=== PATIENT | male | born 1990 | race Caucasian/White ===

== ENCOUNTER 2017-09-27 22:34 | Emergency (ER) | payer OTHER ==
[2017-09-27] MEDS: PROPOFOL 100 ML IV PRN ×2 (00:50→22:38)
[~2017-09-27 22:34] MED LIST: ROCURONIUM BROMIDE INJ 50 MG/5 ML VIAL IV ONE
[2017-09-27] MEDS ORDERED: KETAMINE HCL INJ 500 MG/10 ML VIAL ONE (22:36)
[2017-09-27] MEDS ORDERED: PROPOFOL 100 ML IV ONE (22:38)
[2017-09-27 22:51] LABS: ABSOLUTE BASOPHILS # (AUTO) 0.1 10^3/uL (0.0-0.2); ABSOLUTE EOSINOPHILS # (AUTO) 0.2 10^3/uL (0.0-0.6); ABSOLUTE LYMPHOCYTES (AUTO) 2.4 10^3/uL (0.5-4.7); ABSOLUTE MONOCYTES (AUTO) 0.4 10^3/uL (0.1-1.4); ABSOLUTE NEUT (AUTO) 15.1 10^3/uL (1.7-8.2); BASOPHILS % (AUTO) 0.6 % (0-2); EOSINOPHILS % (AUTO) 1.3 % (0-6); HEMATOCRIT 45.7 % (37.9-51.0); LYMPHOCYTES % (AUTO) 13.3 % (13-45); MEAN CORPUSCULAR HGB CONC 32.8 g/dL (32.0-36.0); MEAN CORPUSCULAR VOLUME 85 fl (80-97); MONOCYTES % (AUTO) 2.4 % (3-13); PLATELET COUNT 356 10^3/uL (150-450); RED BLOOD COUNT 5.36 10^6/uL (4.35-5.55); RED CELL DISTRIBUTION WIDTH 13.2 % (11.5-14.0); SEGMENTED NEUTROPHILS % (AUTO) 82.4 % (42-78); TOTAL CELLS COUNTED % (AUTO) 100 %; WHITE BLOOD COUNT 18.3 10^3/uL (4.0-10.5)
[2017-09-27 22:52] LABS: ARTERIAL BLOOD BASE EXCESS -7.2 mmol/L; ARTERIAL BLOOD H2CO3 1.44 mmol/L (1.05-1.35); ARTERIAL BLOOD HCO3 20.3 mmol/L (20-26); ARTERIAL BLOOD O2 SATURATION 72.3 % (94-98); ARTERIAL BLOOD PCO2 47.7 mmHg (35-45); ARTERIAL BLOOD PH 7.25 (7.35-7.45); ARTERIAL BLOOD PO2 44.2 mmHg (80-100); ARTERIAL BLOOD TOTAL CO2 21.7 mmol/L (23-27)
[2017-09-27 22:53] LABS: ARTERIAL BLOOD FIO2 100
--- NOTE | 2017-09-27 22:53 | ER Document Report ---
ED General - General Stated Complaint: POSSIBLE OVERDOSE Time Seen by Provider: 09/27/17 22:42 Cannot obtain history due to: Unstable vital signs Notes: Patient is a 27-year-old male without past medical history, active heroin user who presents after apparently being found unconscious in the lobby of a apartment complex. History is somewhat limited as patient is critically ill at time of presentation. The patient himself was in distress and not able to provide meaningful history. EMS reports that apparently a bypass or found the patient lying on the ground. EMS was called and found patient to be saturating the 50s. The provided 4 g of naloxone which did wake the patient but he maintained very poor oxygen saturations during that time. They report that despite CPAP and continuous nasal cannula his oxygen saturation never proved beyond the mid 80s. Apparently the patient had not complained of anything leading up to the episode today. No additional history can be obtained secondary to the critical nature of this patient at time of presentation. TRAVEL OUTSIDE OF THE [place] IN LAST 30 DAYS: No - Related Data Allergies/Adverse Reactions: No Known Allergies Allergy (Unverified 08/26/16 10:16) Past Medical History - General Information source: Patient, Emergency Med Personnel Cannot obtain history due to: Unstable vital signs - Social History Smoking Status: Current Every Day Smoker Frequency of alcohol use: None Drug Abuse: Heroin Lives with: Alone Family History: Reviewed & Not Pertinent - Past Medical History Cardiac Medical History: Denies: Hx Coronary Artery Disease, Hx Heart Attack, Hx Hypertension Pulmonary Medical History: Denies: Hx Asthma, Hx Bronchitis, Hx COPD, Hx Pneumonia Neurological Medical History: Denies: Hx Cerebrovascular Accident, Hx Seizures Musculoskeltal Medical History: Denies Hx Arthritis Psychiatric Medical History: Reports: Hx Anxiety, Hx Depression Past Surgical History: Reports: Hx Inguinal Hernia - Left - Immunizations Hx Diphtheria, Pertussis, Tetanus Vaccination: Yes Review of Systems - Review of Systems Notes: Constitutional: Negative for fever. HENT: Negative for sore throat. Eyes: Negative for visual changes. Cardiovascular: Negative for chest pain. Respiratory: Positive for shortness of breath. Gastrointestinal: Negative for abdominal pain, vomiting or diarrhea. Genitourinary: Negative for dysuria. Musculoskeletal: Negative for back pain. Skin: Negative for rash. Neurological: Negative for headaches, weakness or numbness. 10 point ROS negative except as marked above and in HPI. Physical Exam - Vital signs Vitals: Temp 97.9 F 09/27/17 22:34 Interpretation: Tachycardic, Hypoxic, Tachypneic Notes: PHYSICAL EXAMINATION: GENERAL: Lethargic but GCS of 15. Appears visibly cyanotic in the ears, hands and feet. HEAD: Atraumatic, normocephalic. EYES: Pupils are 2 mm, equally reactive, extraocular movements intact, sclera anicteric, conjunctiva are normal. ENT: nares patent, oropharynx clear without exudates. Moist mucous membranes. NECK: Normal range of motion, supple without lymphadenopathy LUNGS: Diminished breath sounds in all lung burrows. Slightly rhonchorous throughout. Tachypneic. HEART: Regular tachycardia without murmurs ABDOMEN: Soft, nontender, normoactive bowel sounds. No guarding, no rebound. No masses appreciated. EXTREMITIES: Normal range of motion, no pitting or edema. No cyanosis. NEUROLOGICAL: No focal neurological deficits. Moves all extremities spontaneously and on command. PSYCH: Somewhat lethargic, but responds to questioning SKIN: Warm, Dry, normal turgor, no rashes or lesions noted. Course - Re-evaluation Re-evalutation: 09/27/17 22:43 Patient presents in severe respiratory distress, initially saturating 51% on CPAP by EMS clinically appearing to have a higher SPO2 than this as he was awake and talking. He does have retractions, hyperventilating and does appear clinically cyanotic although it is unclear if this is from temperature as it is very cold outside versus true cyanosis. He was immediately transition to our BiPAP mask with an a nasal cannula on high flow underneath the BiPAP mask. Lung sounds were clear bilaterally. ABG will be obtained to clarify his oxygen level as after being hooked up to our continuous monitor patient was found on BiPAP with underlying nasal cannula to be saturating at 82-94%. An ABG will be sent to clarify. A chest x-ray will be obtained. Patient's mental status is otherwise clear and he is currently a GCS of 15. Diagnostic considerations include naloxone induced pulmonary edema, possible massive aspiration, less likely to be an acute endocarditis with associated congestive failure as patient has no additional stigmata of this diagnosis. Acute ARDS is also high on the differential. A bedside echocardiogram shows appropriate contractility, no regional wall motion abnormalities, and no evidence of a pericardial effusion. Chest x-ray shows diffuse pulmonary edema and B-lines are present on a bedside pulmonary ultrasound. Will continue to reassess frequently. Patient is critically ill due to his respiratory status 09/27/17 23:42 Documentation is delayed as I have been with this patient for an hour continuously. Patient has subsequently been intubated as he continued to have deteriorating pulse oxygenation maintaining a sat no higher than 82-83%. Initial ABG did show the initial concerning pulse oximetry readings by EMS were accurate. Despite our initially reassuring pulse oximetry readings on BiPAP with nasal cannula patient continued to have marked deterioration with his oxygen saturations coming into the low 80s. This was despite 100% nasal cannula underneath the BiPAP. Intubation was achieved on per first-pass success without difficulty or delayed period of intubation. However immediately upon placing ET tube a large quantity of a reddish clear sputum was produced and patient is continued to produce a very large amount of this, consistent with ARDS. Patient remains very difficult to ventilate. I have been at the bedside with respiratory therapy directly managing the ventilator. We had to remove the patient from the ventilator and begin bagging with a Peep valve to improve the patient's oxygen saturations. I have increased the patient 's PEEP to 18, he continues on 100% FiO2, and I am beginning to use a ARDS protocol increasing his respiratory rate 22 and decreasing his tidal volume down to 400. I have also placed a call to [facility] for emergent transfer of this patient is he will require an art therapy specialist as well as a acid polymerization operator. 09/27/17 23:57 I have spoken to who is accepted the patient for transfer. He does not have any additional ventilator recommendations and what I am currently doing. The patient's SPO2 is currently 100%, PEEP at 18, respiratory rate 25, tidal volume 400. Will continue to assess at regular intervals 09/28/17 00:44 Patient is having improvement of his oxygenation coming up to 92-93% on the same settings. His blood pressure is downtrending somewhat and I will initiate a fluid bolus of 500 cc of normal saline. Propofol is at 40 and patient is moving all extremities spontaneously, coughing and gagging. Still having a large amount of pulmonary edema in the endotracheal tube. A 40 mg bolus of propofol will be given to help patient become more sedated as he is starting to pull against the restraints and coughing vigorously. Continue suction out large quantities of pulmonary edema from his lungs. Air transport is due to arrive shortly. 0102-I have provided a bedside report to air transport. Clarified all management and current ventilator settings. Patient is now having greatly improving oxygen saturations coming up into the 98-100% on above settings. Will maintain the settings for the transportation but I anticipate that hopefully he will begin to be able to be weaned off 100% FiO2. Patient remains in critical condition but is stable for transport at this time. - Vital Signs Vital signs: Temp Pulse Resp BP Pulse Ox 97.9 F 15 99/66 L 99 09/27/17 22:34 09/28/17 01:01 09/28/17 01:01 09/28/17 01:01 - Laboratory Result Diagrams: 09/27/17 22:41 09/27/17 22:41 Laboratory results interpreted by me: 09/27/17 09/27/17 09/27/17 21:50 22:41 22:41 WBC 18.3 H Seg Neutrophils % 82.4 H Monocytes % 2.4 L Absolute Neutrophils 15.1 H Carbonic Acid ABG pH ABG pCO2 ABG pO2 ABG Total CO2 ABG O2 Saturation Potassium 3.5 L Creatinine 1.63 H Est GFR (Non-Af Amer) 52 L Glucose 320 H Lactic Acid 5.6 H Urine Protein Urine Glucose (UA) Urine Blood Salicylates < 1.0 L Acetaminophen < 10 L 09/27/17 09/27/17 09/27/17 22:41 23:35 23:45 WBC Seg Neutrophils % Monocytes % Absolute Neutrophils Carbonic Acid 1.44 H 2.09 H ABG pH 7.25 L 7.17 L* ABG pCO2 47.7 H 69.3 H* ABG pO2 44.2 L 56.4 L ABG Total CO2 21.7 L ABG O2 Saturation 72.3 L 80.3 L Potassium Creatinine Est GFR (Non-Af Amer) Glucose Lactic Acid Urine Protein 30 H Urine Glucose (UA) >=500 H Urine Blood SMALL H Salicylates Acetaminophen 09/28/17 00:32 WBC Seg Neutrophils % Monocytes % Absolute Neutrophils Carbonic Acid 1.56 H ABG pH 7.24 L ABG pCO2 51.9 H ABG pO2 67.0 L ABG Total CO2 ABG O2 Saturation 89.8 L Potassium Creatinine Est GFR (Non-Af Amer) Glucose Lactic Acid Urine Protein Urine Glucose (UA) Urine Blood Salicylates Acetaminophen - Diagnostic Test Radiology reviewed: Image reviewed, Reports reviewed Radiology results interpreted by me: 09/28/17 02:42 Chest x-ray: Diffuse patchy infiltrates in all all aspects of the lung field Chest x-ray 2: ET tube in appropriate position. Unchanged appearance of pulmonary infiltrates Procedures - Intubation Orotracheal Airway evaluation: Copious secretions Mallampati Classification: Class 1 Medications: Ketamine, Other - Rocuronium Intubation method: Orotracheal Blade type: Tan Blade size: 4 Equipment used: Glidescope ETT size: 8.0 ETT secured at: Lips ETT secured at (cm): 25 Breath Sounds after Intubation: Equal End tidal CO2 confirmed: Yes Ventilator settings: SIMV Tidal volume: 400 FiO2: 100 Respirations: 25 PEEP: 18 Post Intubation Xray: Yes Intubation Complications: No complications Critical Care Note - Critical Care Note Total time excluding time spent on procedures (mins): 120 Comments: Critical care time spent obtaining history from patient or surrogate, discussions with consultants, development of treatment plan with patient or surrogate, evaluation of patient's response to treatment, examination of patient , ordering and performing treatments and interventions, ordering and review of laboratory studies, re-evaluation of patient's condition, ordering and review of radiographic studies and review of old charts Discharge - Discharge Clinical Impression: Respiratory distress, ARDS (adult respiratory distress syndrome), Hypoxemia Heroin overdose Qualifiers: Encounter type: initial encounter Injury intent: accidental or unintentional Qualified Code(s): T40.1X1A - Poisoning by heroin, accidental (unintentional), initial encounter Condition: Critical Disposition: [facility]
--- NOTE | 2017-09-27 23:07 | RADIOLOGY REPORT (SQ) ---
EXAM DESCRIPTION: CHEST SINGLE VIEW COMPLETED DATE/TIME: 09/27/2017 10:50 pm REASON FOR STUDY: sob, hypoxia COMPARISON: None. EXAM PARAMETERS: NUMBER OF VIEWS: One view. TECHNIQUE: Single frontal radiographic view of the chest acquired. RADIATION DOSE: NA LIMITATIONS: None. FINDINGS: LUNGS AND PLEURA: Diffusely increased airspace opacities. No pleural effusion. No pneumo thorax. MEDIASTINUM AND HILAR STRUCTURES: No masses. Contour normal. HEART AND VASCULAR STRUCTURES: Heart normal in size. Normal vasculature. BONES: No acute findings. HARDWARE: None in the chest. OTHER: No other significant finding. IMPRESSION: Diffusely increased airspace opacities are a nonspecific finding, and may represent mult i lobar pneumonia, atypical pneumonitis, pulmonary edema or hemorrhage, ARDS. COMMENT: Documentation of communication of results. Examination was discussed with the treating Dr. Fabien zamora, the time of interpretation. TECHNICAL DOCUMENTATION: JOB ID: [id number] [employer]- All Rights Reserved
[2017-09-27 23:11] LABS: ALANINE AMINOTRANSFERASE 29 U/L (21-72); ALBUMIN 4.7 g/dL (3.5-5.0); ALKALINE PHOSPHATASE 76 U/L (38-126); ANION GAP 15 (5-19); ASPARTATE AMINO TRANSFERASE 54 U/L (17-59); BILIRUBIN,DIRECT 0.3 mg/dL (0.0-0.4); BILIRUBIN,TOTAL 0.3 mg/dL (0.2-1.3); BLOOD UREA NITROGEN 19 mg/dL (7-20); CARBON DIOXIDE 26 mmol/L (22-30); CHLORIDE 98 mmol/L (98-107); GLUCOSE 320 mg/dL (75-110); POTASSIUM 3.5 mmol/L (3.6-5.0); SODIUM 139.4 mmol/L (137-145); TOTAL PROTEIN 7.8 g/dL (6.3-8.2)
[2017-09-27 23:13] LABS: ACETAMINOPHEN < 10 ug/mL (10-30); ALCOHOL < 10 mg/dL (NONE DETECTED); SALICYLATE < 1.0 mg/dL (2.0-20.0)
[2017-09-27] MEDS ORDERED: NORMAL SALINE 1000 ML 1,000 ML IV ONE (23:33)
[2017-09-27 23:52] LABS: ARTERIAL BLOOD BASE EXCESS -5.7 mmol/L; ARTERIAL BLOOD H2CO3 2.09 mmol/L (1.05-1.35); ARTERIAL BLOOD HCO3 24.5 mmol/L (20-26); ARTERIAL BLOOD O2 SATURATION 80.3 % (94-98); ARTERIAL BLOOD PO2 56.4 mmHg (80-100); ARTERIAL BLOOD TOTAL CO2 26.6 mmol/L (23-27)
[2017-09-27 23:54] LABS: ARTERIAL BLOOD FIO2 100
[2017-09-27 23:55] LABS: ARTERIAL BLOOD PCO2 69.3 mmHg (35-45); ARTERIAL BLOOD PH 7.17 (7.35-7.45)
[2017-09-28 00:06] LABS: URINE AMPHETAMINES SCREEN NEGATIVE; URINE BARBITURATES SCREEN NEGATIVE; URINE BENZODIAZEPINES SCREEN NEGATIVE; URINE COCAINE SCREEN NEGATIVE; URINE MARIJUANA (THC) SCREEN NEGATIVE; URINE METHADONE SCREEN NEGATIVE; URINE PHENCYCLIDINE SCREEN NEGATIVE
[2017-09-28 00:10] LABS: AMORPHOUS SEDIMENT,URINE TRACE /HPF; APPEARANCE,URINE SLIGHTLY-CLOUDY; BILIRUBIN,URINE NEGATIVE (NEGATIVE); COLOR,URINE YELLOW; GLUCOSE, URINE >=500 mg/dL (NEGATIVE); KETONES,URINE NEGATIVE (NEGATIVE); LEUKOCYTE ESTERASE,URINE NEGATIVE (NEGATIVE); NITRITE,URINE NEGATIVE (NEGATIVE); PROTEIN,URINE 30 mg/dL (NEGATIVE); URINE SPECIFIC GRAVITY 1.017; UROBILINOGEN,URINE NEGATIVE mg/dL (<2.0)
--- NOTE | 2017-09-28 00:12 | RADIOLOGY REPORT (SQ) ---
EXAM DESCRIPTION: CHEST SINGLE VIEW CLINICAL HISTORY: 27 years, Male, post-intubatin COMPARISON: 1.6.18 LIMITATIONS: None. FINDINGS: Extensive, moderate mixed airspace and interstitial opacity, mild haziness-layered effusion of bilateral lung bases, normal cardiac silhouette, adequate appearing endotracheal tube at the thoracic inlet. Likely enteric tube tip at the level of the midesophagus; consider advancement or replacement. IMPRESSION: 1. Likely enteric tube tip at the level of the midesophagus; consider adjustment/replacement. 2. Advanced pulmonary edema pattern. Differential diagnosis includes multifocal pneumonia. 2011 [employer]- All Rights Reserved
[2017-09-28 00:43] LABS: ARTERIAL BLOOD BASE EXCESS -6.1 mmol/L; ARTERIAL BLOOD H2CO3 1.56 mmol/L (1.05-1.35); ARTERIAL BLOOD HCO3 21.8 mmol/L (20-26); ARTERIAL BLOOD O2 SATURATION 89.8 % (94-98); ARTERIAL BLOOD PCO2 51.9 mmHg (35-45); ARTERIAL BLOOD PH 7.24 (7.35-7.45); ARTERIAL BLOOD TOTAL CO2 23.4 mmol/L (23-27)
[2017-09-28] MEDS ORDERED: ROCURONIUM BROMIDE INJ 50 MG/5 ML VIAL IV ONE (00:44)
[2017-09-28] MEDS ORDERED: KETAMINE HCL INJ 500 MG/10 ML VIAL IV ONE (00:44)
[2017-09-28 00:45] LABS: ARTERIAL BLOOD FIO2 100
[2017-09-28 00:59] LABS: A TYPE INFLUENZA AG NEGATIVE (NEGATIVE); B INFLUENZA AG NEGATIVE (NEGATIVE)
[2017-09-28 02:04] VITALS: BP 99/66
--- NOTE | 2017-09-28 17:28 | EKG REPORT ---
SEVERITY:- OTHERWISE NORMAL ECG - SINUS TACHYCARDIA : Confirmed by: Danielle Guerrero 28-Sep-2017 12:19:20
== END 2017-09-28 00:50 | disposition short-term general hospital (02) ==
LOC: ER 22:34
PROC: 0BH17EZ Insertion of Endotracheal Airway into Trachea, Via Natural or Artificial Opening (ICD-10-PCS; principal; 2017-09-27)
DX: T40.1X1A Poisoning by heroin, accidental (unintentional), initial encounter (principal); J80 Acute respiratory distress syndrome; F11.10 Opioid abuse, uncomplicated; F17.200 Nicotine dependence, unspecified, uncomplicated
CPT/HCPCS: 93005; 99291; 99292; 96360; 51702; 36415; 87040; 80307 ×4; 82803; 85025; 80053; 81001; 83605; 87804; 71045; 93010; 94660; 31500; J3490 ×3; J2704; J7030